=== PATIENT | male | born 1980 | race Caucasian/White ===

== ENCOUNTER 2021-07-04 21:35 | Emergency (ER) | payer MEDICAID ==
[2021-07-04 21:40] VITALS: BP 103/67; PULSE 107
[2021-07-04] MEDS ORDERED: Ketorolac 60 MG/2 ML SDV IM ONE (21:50)
[2021-07-04 22:32] LABS: RESPIRATORY SYNCYTIAL VIR NAA NEGATIVE (NEGATIVE)
[2021-07-04 22:36] LABS: CORONAVIRUS COVID-19 NAA POSITIVE (NEGATIVE)
== END 2021-07-04 23:12 | disposition home or self-care (01) ==
LOC: LL.ED 21:35
DX: U07.1 COVID-19 (principal); Z72.0 Tobacco use
CPT/HCPCS: 0241U; 71046; 81001; 87081; 87430; 96372; 99283-25; J1885

== ENCOUNTER 2022-07-01 19:49 | Emergency (ER) | payer BC ==
[2022-07-01 20:56] LABS: RESPIRATORY SYNCYTIAL VIR NAA NEGATIVE (NEGATIVE)
[2022-07-01 21:04] LABS: CORONAVIRUS COVID-19 NAA POSITIVE (NEGATIVE)
[2022-07-01 21:17] VITALS: BP 107/68; PULSE 100
== END 2022-07-01 21:26 | disposition home or self-care (01) ==
LOC: LL.ED 19:49
DX: U07.1 COVID-19 (principal); F17.210 Nicotine dependence, cigarettes, uncomplicated
CPT/HCPCS: 0241U; 87081; 87430; 99283; 99284

== ENCOUNTER 2024-06-13 23:44 | Emergency (ER) | payer BC ==
[2024-06-13] MEDS ORDERED: Sodium Chloride 0.9% 10 ML Syringe FLUSH PRN (23:50)
[2024-06-13] MEDS: Sodium Chloride 0.9% 1,000 ML IV SCH (23:55)
[2024-06-14 00:04] LABS: BASOPHILS ABSOLUTE AUTO 0.03 K/uL (0.00-0.20); BASOPHILS PERCENT AUTO 0.4 % (0.0-2.0); EOSINOPHILS PERCENT AUTO 1.5 % (0.0-5.0); HEMATOCRIT 41.4 % (39.0-49.0); HEMOGLOBIN 14.8 g/dL (13.1-16.8); IMMATURE GRAN ABSOLUTE AUTO 0.01 10^3/uL (0.00-0.04); IMMATURE GRAN PERCENT AUTO 0.1 % (0.0-0.4); LYMPHOCYTES ABSOLUTE AUTO 1.87 K/uL (0.50-3.50); LYMPHOCYTES PERCENT AUTO 27.9 % (10.0-50.0); MEAN CORPUSCULAR HEMOGLOBIN 30.5 pg (28.2-33.3); MEAN CORPUSCULAR HGB CONC 35.7 g/dL (31.7-36.0); MEAN CORPUSCULAR VOLUME 85.2 fL (84.0-98.0); MONOCYTES ABSOLUTE AUTO 0.43 K/uL (0.00-1.00); MONOCYTES PERCENT AUTO 6.4 % (2.0-14.0); NEUTROPHILS ABSOLUTE AUTO 4.27 K/uL (1.40-7.00); NEUTROPHILS PERCENT AUTO 63.7 % (45.0-80.0); PLATELET COUNT,PLT 178 K/uL (150-350); RED BLOOD CELL COUNT 4.86 M/uL (4.33-5.41); RED CELL DISTRIBUTION WIDTH 12.5 % (11.2-14.1); WHITE BLOOD CELL COUNT,WBC 6.7 K/uL (4.0-10.2)
[2024-06-14 00:16] LABS: HEMOGLOBIN A1C > 14.0 % (4.3-5.7)
[2024-06-14 00:18] LABS: ALANINE AMINOTRANSFERASE,ALT 40 U/L (12-78); ALBUMIN 3.4 g/dL (3.4-5.0); ALKALINE PHOSPHATASE 103 IU/L (46-116); ASPARTATE AMNIOTRANSFERASE,AST 25 U/L (15-37); BILIRUBIN TOTAL 0.4 mg/dL (0.2-1.0); BLOOD UREA NITROGEN,BUN 27 mg/dL (7-18); CALCIUM 9.2 mg/dL (8.5-10.1); CARBON DIOXIDE,CO2 28.2 mmol/L (21.0-32.0); CHLORIDE,CL 89 mmol/L (98-107); CREATININE 1.25 mg/dL (0.51-1.17); PROTEIN TOTAL,TP 6.8 g/dL (6.4-8.2); SODIUM,NA 126 mmol/L (136-145)
[2024-06-14 00:19] LABS: ANION GAP 13.8 meq/L (7-15); ESTIMATED GFR 72 mL/min (>=60)
[2024-06-14 00:20] LABS: GLUCOSE RANDOM 914 mg/dL (70-99)
[2024-06-14] MEDS ORDERED: Glucagon,Human Recombinant 1 MG Vial IM PRN (00:28)
[2024-06-14] MEDS ORDERED: 50% Dextrose in Water 50 ML Syringe IVPUSH PRN (00:28)
[2024-06-14 00:35] LABS: BASE EXCESS ARTERIAL -1 mmol/L (-2-3); BICARBONATE,ARTERIAL 24.9 mmol/L (22-26); O2 DELIVERY DEVICE ROOM AIR; O2 SATURATION ARTERIAL 93 % (95-98); PCO2 ARTERIAL 43 mmHG (35-45); PH,ARTERIAL 7.37 (7.35-7.45)
[2024-06-14 00:36] LABS: PO2 ARTERIAL 68 mmHG (80-105)
[2024-06-14] MEDS: Insulin Glarg,Human.Rec.Analog 100 Unit/ML 10 ML Vial SUBCUT STA (00:36)
[2024-06-14 00:55] VITALS: BP 130/91; PULSE 80
== END 2024-06-14 01:23 | disposition home or self-care (01) ==
LOC: LL.ED 23:44
DX: E11.9 Type 2 diabetes mellitus without complications (principal); F17.210 Nicotine dependence, cigarettes, uncomplicated
CPT/HCPCS: 36415; 80053; 82803; 82947; 83036; 85025; 96360; 99283-25; J1815-GY; J7030